=== PATIENT | male | born 1945 | race Caucasian/White ===

== ENCOUNTER 2019-06-02 11:53 | Observation (INO) ==
--- NOTE | 2019-06-02 12:00 | Emergency Department Note ---
Disposition Clinical Impression: Generalized weakness, Left leg swelling, Elevated d-dimer Disposition: Admitted As Inpatient Condition: Fair Referrals: Robyn Navarrete, LOSS PREVENTION INVESTIGATOR [Primary Care Provider] - Forms: ED Satisfaction Letter, Work/School Release Time of Disposition: 13:05 General Adult HPI - General Chief complaint: ED General Medical Stated complaint: left ankle swelling, weakness Time Seen by Provider: 06/02/19 11:57 Source: patient, EMS Mode of arrival: EMS Limitations: no limitations Nursing Notes Reviewed: Yes Vital Signs Reviewed: Yes - History of Present Illness HPI Narrative: Patient arrives by EMS having been dispatched for "general illness". He arrived and he states that he has left ankle swelling for which she is been evaluated by his primary care provider, Robyn Navarrete. He had edema was placed on Lasix for 5 days that his blood pressure pills were adjusted. He stated that he had improvement of swelling but it "swelled back up after stopping the Lasix". He does not have another appointment with his primary care provider nor is he called for an appointment. Today he states he difficulty standing because his "legs give out". He describes this as being "just weak". He denies dizziness or vertiginous symptoms. He denies any localized numbness, tingling or weakness. He denies chest pain or palpitations. He denies any shortness of breath, nausea or diaphoresis. Denies abdominal pain and volunteers that he had a bowel movement 3-4 days ago. He has not had bloody or black stools. He denies headache or visual changes. He denies any history of DVT or PE. He does live with his brother. - Related Data Home Medications Medication Instructions Recorded Confirmed Amlodipine Besylate 10 mg PO QAM 01/20/19 01/20/19 OxyCODONE/APAP 5/325 [Percocet 1 tab PO Q6H PRN 01/20/19 01/20/19 5/325 MG] Allergies Allergy/AdvReac Type Severity Reaction Status Date / Time No Known Allergies Allergy Verified 01/20/19 13:59 All systems ED: reviewed and negative except as stated. Past Medical History - Past Medical History Attestation: Yes The following information was validated with the patient. Source: patient, old records reviewed, nursing notes reviewed Medical history: Reports: hypertension, kidney stones, renal disease, other Surgical history: Reports: other Psychiatric history: Reports: no psych history - Social History Smoking Status: Former smoker Smokeless Tobacco Status: No Alcohol use: Reports: none Drug use: Reports: none Physical Exam - General Limitations: no limitations General appearance: alert, in no apparent distress - Head Head exam: atraumatic, normocephalic, normal inspection - Eye Eye exam: Present: normal appearance, PERRL, EOMI - ENT ENT exam: normal exam - Neck Neck exam: Present: normal inspection, full ROM, trachea midline - Chest Chest inspection: Present: normal inspection, symmetric chest wall rise - Respiratory Respiratory exam: Present: normal lung sounds bilaterally. Absent: respiratory distress, wheezes, prolonged expiratory phase - Cardiovascular Cardiovascular exam: Present: regular rate, normal rhythm, normal heart sounds. Absent: tachycardia - Abdominal Exam Abdominal exam: Present: soft, Non-Tender, normal bowel sounds. Absent: tenderness, distention, guarding, rebound, rigidity - Extremities Exam Extremities exam: Present: normal inspection, full ROM, normal capillary refill, pedal edema (Left greater than right., 2+, pitting). Absent: calf tenderness - Expanded Lower Extremity Exam Neurovascular/Tendon exam: Present: normal capillary refill. Absent: motor deficit, sensory deficit, tendon deficit Gait: not tested/not observed - Neurological Exam Neurological exam: Present: alert, oriented X3 - Psychiatric Psychiatric exam: Present: normal affect, normal mood - Skin Skin exam: Present: warm, dry, intact, normal color. Absent: diaphoresis, pallor Course Course Narrative: 1302: Care has been discussed with the patient and family. He is feeling too weak to stand and ambulate. He will not be a good candidate for discharge. He does have an elevated d-dimer for which she is administered a dose of Lovenox. I discussed care with Dr. Courtney for inpatient observation, physical therapy's assessment with regard to standing and ambulation and to obtain an inpatient venous Doppler study. Verbal orders have been obtained. Patient remains in stable condition. Vital Signs Temperature 98.7 F 06/02/19 11:56 Pulse Rate 96 06/02/19 11:56 Respiratory Rate 18 06/02/19 11:56 Blood Pressure 166/70 06/02/19 11:56 O2 Sat by Pulse Oximetry 95 06/02/19 11:56 Temperature 98.7 F 06/02/19 11:56 Pulse Rate 96 06/02/19 11:56 Respiratory Rate 18 06/02/19 11:56 Blood Pressure 166/70 06/02/19 11:56 O2 Sat by Pulse Oximetry 95 06/02/19 11:56 Oxygen Delivery Oxygen Delivery Room Air Medical Decision Making - Medical Records Medical records reviewed: Yes I reviewed the patient's medical records. - Lab Data Lab results reviewed: Yes I reviewed the patient's lab results. Lab results narrative: The patient's creatinine is in his usual range. Result diagrams: 06/02/19 12:20 06/02/19 12:20 Lab Results 06/02/19 06/02/19 06/02/19 Range/Units 12:20 12:20 12:20 WBC 16.5 H (4.3-11.1) K/mcL RBC 4.32 (4.19-5.50) M/mcL Hgb 13.7 (12.9-16.9) g/dL Hct 39.3 (37.5-50.1) % MCV 91.0 (83.0-100.0) fL MCH 31.7 (28.0-33.3) pg MCHC 34.9 (31.6-35.5) g/dL RDW 13.5 (11.5-14.5) % Plt Count 112 L (140-400) K/mcL MPV 11.0 (9.4-12.4) fL Immature Gran % 1.0 (0-4) % Seg Neutrophils % 86.7 % Lymphocytes % 4.6 % Monocytes % 7.3 % Eosinophils % 0.1 % Basophils % 0.3 % Neutrophils # 14.3 H (1.6-8.9) K/mcL Lymphocytes # 0.8 (0.6-4.6) K/mcL Monocytes # 1.2 (0.0-1.3) K/mcL Eosinophils # 0.0 (0.0-0.6) K/mcL Basophils # 0.1 (0.0-0.2) K/mcL D-Dimer 594 H (0-500) ng/mLFEU Sodium 137 (136-145) mEq/L Potassium 3.8 (3.5-5.1) mEq/L Chloride 104 (98-107) mEq/L Carbon Dioxide 23 (23-29) mEq/L BUN 18 (8-23) mg/dL Creatinine 1.60 H (0.70-1.30) mg/dL Est GFR ( Amer) 51 L (> 60) Est GFR (Non-Af Amer) 42 L (> 60) BUN/Creatinine Ratio 11 (6-26) Glucose 184 H (70-105) mg/dL Calculated Osmolality 291 (280-300) Calcium 9.1 (8.6-10.3) mg/dL Total Bilirubin 1.3 H (0.3-1.0) mg/dL Direct Bilirubin 0.2 (0.0-0.2) mg/dL Indirect Bilirubin 1.1 (0.0-1.2) mg/dL AST 17 (13-39) Units/L ALT 28 (7-52) Units/L Alkaline Phosphatase 66 (34-104) Units/L B-Natriuretic Peptide (Less than 100) pg/mL Serum Total Protein 7.1 (6.4-8.9) g/dL Albumin 3.9 (3.5-5.7) g/dL Globulin 3.2 (2.4-3.5) g/dL Albumin/Globulin Ratio 1.2 (1.1-2.2) 06/02/19 Range/Units 12:20 WBC (4.3-11.1) K/mcL RBC (4.19-5.50) M/mcL Hgb (12.9-16.9) g/dL Hct (37.5-50.1) % MCV (83.0-100.0) fL MCH (28.0-33.3) pg MCHC (31.6-35.5) g/dL RDW (11.5-14.5) % Plt Count (140-400) K/mcL MPV (9.4-12.4) fL Immature Gran % (0-4) % Seg Neutrophils % % Lymphocytes % % Monocytes % % Eosinophils % % Basophils % % Neutrophils # (1.6-8.9) K/mcL Lymphocytes # (0.6-4.6) K/mcL Monocytes # (0.0-1.3) K/mcL Eosinophils # (0.0-0.6) K/mcL Basophils # (0.0-0.2) K/mcL D-Dimer (0-500) ng/mLFEU Sodium (136-145) mEq/L Potassium (3.5-5.1) mEq/L Chloride (98-107) mEq/L Carbon Dioxide (23-29) mEq/L BUN (8-23) mg/dL Creatinine (0.70-1.30) mg/dL Est GFR ( Amer) (> 60) Est GFR (Non-Af Amer) (> 60) BUN/Creatinine Ratio (6-26) Glucose (70-105) mg/dL Calculated Osmolality (280-300) Calcium (8.6-10.3) mg/dL Total Bilirubin (0.3-1.0) mg/dL Direct Bilirubin (0.0-0.2) mg/dL Indirect Bilirubin (0.0-1.2) mg/dL AST (13-39) Units/L ALT (7-52) Units/L Alkaline Phosphatase (34-104) Units/L B-Natriuretic Peptide 81 (Less than 100) pg/mL Serum Total Protein (6.4-8.9) g/dL Albumin (3.5-5.7) g/dL Globulin (2.4-3.5) g/dL Albumin/Globulin Ratio (1.1-2.2) - Radiology Data Radiology results reviewed: Yes I reviewed the patient's radiology results. Single view chest x-ray is performed. This does not demonstrate evidence for i nfiltrate, pneumothorax, foreign body or heart failure. Patient has a small left-sided effusion. The cardiac silhouette is normal. I do not see abnormality to the osseous structures of the chest. This is on my interpretation. Impressions Chest X-Ray 06/02/19 12:30 IMPRESSION: Bibasilar atelectasis. Possible trace left pleural effusion D/ / Win Villa MD / Win Villa MD Interpreting Provider: Win Villa MD - EKG Data EKG #1 EKG attestation: Yes I reviewed and interpreted this EKG. EKG shows normal: sinus rhythm, axis, intervals, QRS complexes, ST-T waves Rate: normal (102) Interpretation: no acute changes, normal EKG
[2019-06-02 12:32] LABS: Basophils # 0.1 K/mcL (0.0-0.2); Basophils % 0.3 %; Eosinophils % 0.1 %; Hematocrit 39.3 % (37.5-50.1); Hemoglobin 13.7 g/dL (12.9-16.9); Lymphocytes # 0.8 K/mcL (0.6-4.6); Lymphocytes % 4.6 %; Mean Corpuscular HGB Conc 34.9 g/dL (31.6-35.5); Mean Corpuscular Hemoglobin 31.7 pg (28.0-33.3); Monocytes # 1.2 K/mcL (0.0-1.3); Monocytes % 7.3 %; Neutrophils # 14.3 K/mcL (1.6-8.9); Platelet Count 112 K/mcL (140-400); Red Blood Count 4.32 M/mcL (4.19-5.50); Red Cell Distribution Width 13.5 % (11.5-14.5); Segmented Neutrophils % 86.7 %; White Blood Count 16.5 K/mcL (4.3-11.1)
[2019-06-02 12:42] LABS: Albumin 3.9 g/dL (3.5-5.7); Albumin/Globulin Ratio 1.2 (1.1-2.2); Bilirubin,Direct 0.2 mg/dL (0.0-0.2); Bilirubin,Indirect 1.1 mg/dL (0.0-1.2); Bilirubin,Total 1.3 mg/dL (0.3-1.0); Calcium 9.1 mg/dL (8.6-10.3); Globulin 3.2 g/dL (2.4-3.5); Potassium 3.8 mEq/L (3.5-5.1); Total Protein 7.1 g/dL (6.4-8.9)
[2019-06-02] MEDS ORDERED: *HR* Enoxaparin 150 MG/ML SYRINGE SQ ONE (13:00)
[2019-06-02] MEDS ORDERED: Naloxone 0.4 MG/ML INJ IVP PRN (13:07)
[2019-06-02] MEDS ORDERED: MOM Conc 10 ML UD.LIQ PO PRN (13:07)
[2019-06-02] MEDS ORDERED: Mag Hydrox/Al Hydrox/Simeth 30 ML UDC PO PRN (13:07)
[2019-06-02] MEDS ORDERED: Ondansetron ODT 4 MG TAB.RAPDIS SL PRN (13:07)
[2019-06-02] MEDS ORDERED: Acetaminophen 325 MG TABLET PO PRN (15:45)
--- NOTE | 2019-06-02 15:51 | Internal Med History&Physical ---
Date of Encounter: 06/02/19 Time of Encounter: 15:20 Assessment and Plan (1) Left leg cellulitis Current visit: Yes Status: Acute Blood cultures will be drawn and he will be started on empiric vancomycin with lactobacillus. (2) Hypertension Current visit: Yes Status: Chronic Amlodipine will be held to lessen edema. Blood pressure will be monitored. Qualifiers: Hypertension type: essential hypertension Qualified Code(s): I10 - Essential (primary) hypertension (3) CKD (chronic kidney disease) stage 3, GFR 30-59 ml/min Current visit: Yes Status: Chronic Monitor renal indices. (4) Hyperglycemia Current visit: Yes Status: Acute Check hemoglobin A1c in a.m. (5) Elevated d-dimer Current visit: Yes Status: Acute Age-adjusted WNL. Venous ultrasound has been ordered through ER. Lovenox has been given. (6) History of kidney stones Current visit: Yes Status: Acute Uric acid composition on stone analysis. Check serum uric acid level in a.m. Internal Medicine - H&P: HPI Chief complaint: Left foot pain and redness, weakness Admitted From: Emergency Dept Plans for Post Hospital Care: Home History of present illness: Mr. Garcia is a 73 year old male who came to emergency room stating he had increased pain in his left foot with chills onset 1-2 days earlier. He reports overall sensation of weakness in his left leg for approximately one week. He was evaluated in emergency room and was found to have leukocytosis with left shift. D-dimer was slightly elevated at 594. He was admitted to [facility] floor for ongoing care needs. He reports he has had edema in his feet for 2-3 weeks, left more than right. His PCP gave him 5 day course of Lasix at the last office visit 2-3 weeks ago. He reports brief improvement in the edema but it returned after Lasix was discontinued. Past Med Surg Social Fam HX - Past Medical History Medical history: hypertension, kidney stones, renal disease, other Additional medical history: HIATAL HERNIA Psychiatric history: no psych history - Past Surgical History Surgical History: other Additional surgical history: removal of kidney stones x 7 - Social History Smoking Status: Former smoker Smokeless Tobacco Status: No Alcohol use: none Drug use: none Internal Medicine - H&P: Meds Amlodipine Besylate 10 mg PO QA 01/20/19 [History] Allergy/AdvReac Type Severity Reaction Status Date / Time No Known Allergies Allergy Verified 01/20/19 13:59 All Systems PM: A 10-system review of systems was performed and is negative for pertinent findings except as documented above in the HPI. Review of systems: Gen.: He states his weight has been stable for several months Cardiovascular: He has history of hypertension but denies MS heart failure angina DVT or pulmonary embolus Respiratory: He smoked from approximately age [age]. He denies chronic lung disease and does not use home oxygen. GI: He denies disorders of his liver gallbladder or exocrine pancreas : He has had multiple kidney stones. He denies other kidney bladder prostate disorders. He was unaware he had chronic kidney disease on all labs dating back to January 2016. Neurologic: He denies large distribution strokes or seizures. Endocrine: He denies diabetes thyroid disease or hyperlipidemia Hematology/oncology: He denies blood disorders cancers or anemia Psychiatric: He denies anxiety depression or other mental health issues. [place] skeletal: He reports right elbow injury several years ago. He had left index finger injury from a snakebite resulting in skin graft. He reports remote right leg injury from a saw accident. He denies other bone joint or muscle disorders. - Constitutional Vitals: Temp Pulse Resp BP Pulse Ox 98.3 F 91 20 133/67 96 06/02/19 13:36 06/02/19 13:36 06/02/19 13:36 06/02/19 13:36 06/02/19 13:36 Exam: Gen.: He is a well-developed well-nourished male resting comfortably in bed who appears in no acute distress HEENT: Head is atraumatic and normocephalic. Eyes: EOMI. There is no scleral icterus. Mouth: Mucosa is moist. Neck: Supple and nontender. There is no thyromegaly or adenopathy noted. Heart: Regular without murmurs gallops or ectopics Lungs: No wheezes or crackles are heard. Abdomen: Soft and nontender. No masses or guarding are noted. Extremities: There is trace edema of the right lower leg and dorsum of foot. There is 1+ edema and increased erythema and warmth of the left lower leg and foot. Neurologic: Mental status: He is talkative and a good historian. Cranial nerves: Smile is symmetric. Forehead wrinkles bilaterally. Tongue protrudes midline. EOMI. Motor: There is no pronator drift. Cerebellar: Finger to nose is intact bilaterally. Skin: Warm and dry Internal Med - H&P Results - Labs CBC & Chem 7: 06/02/19 12:20 06/02/19 12:20 Labs: Short CBC 06/02/19 Range/Units 12:20 WBC 16.5 H (4.3-11.1) K/mcL Hgb 13.7 (12.9-16.9) g/dL Hct 39.3 (37.5-50.1) % Plt Count 112 L (140-400) K/mcL Neutrophils # 14.3 H (1.6-8.9) K/mcL BMP 06/02/19 12:20 Sodium 137 Potassium 3.8 Chloride 104 Carbon Dioxide 23 BUN 18 Creatinine 1.60 H Glucose 184 H Calcium 9.1 Liver Function 06/02/19 Range/Units 12:20 Total Bilirubin 1.3 H (0.3-1.0) mg/dL Direct Bilirubin 0.2 (0.0-0.2) mg/dL AST 17 (13-39) Units/L ALT 28 (7-52) Units/L Alkaline Phosphatase 66 (34-104) Units/L Albumin 3.9 (3.5-5.7) g/dL - Impressions ITS Impressions Chest X-Ray 06/02/19 12:30 IMPRESSION: Bibasilar atelectasis. Possible trace left pleural effusion D/ / Win Villa MD / Win Villa MD Interpreting Provider: Win Villa MD
--- NOTE | 2019-06-02 17:52 | Electrocardiograph Report ---
[place] [id number] Test Date: 2019-06-02 Pat Name: Home Garcia Department: EDP-14 Room: [facility] Gender: M [employer]ant [employer] (Ex ): : 1945 Requested By: Gavino Clayton Order Number: [id number] Reading MD: Milana Patino Measurements Intervals [place] Rate: 102 P: 44 [place]: 150 QRS: 51 QRSD: 102 T: 43 QT: 338 QTc: 441 Interpretive Statements Sinus tachycardia Low voltage, precordial leads Electronically Signed On 06-02-2019 17:50:43 EDT by Milana Patino
[2019-06-02] MEDS ORDERED: Lactobacillus 1 EACH CAP.SPRINK PO SCH (21:00)
[2019-06-03 06:16] LABS: Basophils % 0.3 %; Eosinophils # 0.1 K/mcL (0.0-0.6); Eosinophils % 0.8 %; Hematocrit 33.7 % (37.5-50.1); Hemoglobin 11.4 g/dL (12.9-16.9); Immature Granulocytes % 0.4 % (0-4); Lymphocytes # 1.9 K/mcL (0.6-4.6); Lymphocytes % 19.4 %; Mean Corpuscular HGB Conc 33.8 g/dL (31.6-35.5); Mean Corpuscular Hemoglobin 31.3 pg (28.0-33.3); Mean Corpuscular Volume 92.6 fL (83.0-100.0); Mean Platelet Volume 11.3 fL (9.4-12.4); Monocytes # 0.6 K/mcL (0.0-1.3); Monocytes % 5.7 %; Red Blood Count 3.64 M/mcL (4.19-5.50); Red Cell Distribution Width 13.5 % (11.5-14.5); Segmented Neutrophils % 73.4 %; White Blood Count 9.6 K/mcL (4.3-11.1)
[2019-06-03 06:21] LABS: Platelet Count 89 K/mcL (140-400)
[2019-06-03 06:23] VITALS: BP 129/68
[2019-06-03 06:54] LABS: Calcium 8.5 mg/dL (8.6-10.3); Potassium 3.7 mEq/L (3.5-5.1); Uric Acid 6.8 mg/dL (2.3-7.6)
[2019-06-03 08:41] LABS: Estimated Average Glucose 148 mg/dl
[2019-06-03] MEDS ORDERED: Cyanocobalamin (B-12) 1,000 MCG/ML VIAL IM ONE (09:52)
--- NOTE | 2019-06-03 09:53 | Discharge Summary ---
Orders not resulted at time of discharge: Pending orders 06/02/19 16:48 Blood Culture [Culture,Blood] [] Stat Date of Encounter: 06/03/19 Time of Encounter: 09:46 - Discharge Diagnosis (1) Left leg cellulitis Priority: Primary Status: Acute (2) Hypertension Priority: Secondary Status: Chronic Qualifiers: Hypertension type: essential hypertension Qualified Code(s): I10 - Essential (primary) hypertension (3) CKD (chronic kidney disease) stage 3, GFR 30-59 ml/min Priority: Secondary Status: Chronic (4) Elevated d-dimer Priority: Secondary Status: Acute (5) History of kidney stones Priority: Secondary Status: Acute (6) DM type 2 (diabetes mellitus, type 2) Priority: Secondary Status: Chronic Qualifiers: Diabetes mellitus fdc insulin use: without salvage determiner use Diabetes mellitus complication status: with kidney complications Diabetes mellitus complication detail: with chronic kidney disease Chronic kidney disease stage: stage 3 (moderate) Qualified Code(s): E11.22 - Type 2 diabetes mellitus with diabetic chronic kidney disease; N18.3 - Chronic kidney disease, stage 3 (moderate) (7) Anemia Priority: Secondary Status: Acute Qualifiers: Anemia type: unspecified type Qualified Code(s): D64.9 - Anemia, unspecified (8) B12 deficiency Priority: Secondary Status: Chronic Hospital course: Mr. Garcia is a 73 year old male who came to emergency room stating he had increased pain in his left foot with chills onset 1-2 days earlier. He reports overall sensation of weakness in his left leg for approximately one week. He was evaluated in emergency room and was found to have leukocytosis with left shift. D-dimer was slightly elevated at 594. He was admitted to [facility] floor for ongoing care needs. I saw him the afternoon of June 02 and performed a history and physical. Blood cultures were drawn and he was started empirically on IV vancomycin and Lactobacillus for left leg cellulitis. He had significant clinical improvement overnight with decreased redness and warmth in the leg. WBC normalized to 9.6 with resolution of left shift on blood work June 03. He stated he felt improved and wished to be discharged home. I offered him staying another day in the hospital but he stated he needed to leave and do duties around home. He will continue with oral antibiotic and probiotic for 5 additional days. Left leg venous ultrasound was ordered by ER physician. Preliminary report was no evidence of DVT. His PCP can follow up to review final report when available. Hemoglobin decreased to 11.4 on June 03. B12 level returned low at 178. He will be given a B12 injection prior to discharge and was given a prescription for oral B12 supplement to continue at home. Iron profile, ferritin, and folate levels were ordered with results pending at time of discharge. Creatinine decreased slightly to 1.50. Review of archive lab shows chronic kidney disease stage III. Hemoglobin A1c returned at 6.8% consistent with DM 2, diet-controlled. His PCP can order diabetic teaching. Amlodipine was discontinued to lessen edema. He will be given lisinopril/HCTZ for hypertension and diabetic renal prophylaxis. Uric acid level returned WNL at 6.8. On June 03 he wished to be discharged home. He will follow with his PCP Robyn Navarrete CNP within 1 week. - Time Spent with Patient Total time spent providing and/or coordinating discharge services: - Discharge Medications Prescriptions: New Lactobacillus [Culturelle] 1 each PO BID #10 cap.sprink Doxycycline 100 mg PO BID #10 capsule Lisinopril-HCTZ 10-12.5 [Prinzide 10-12.5] 1 each PO DAILY #30 tablet Cyanocobalamin (B-12) [Vitamin B12] 1,000 mcg PO DAILY #30 tablet Discontinued Amlodipine Besylate 10 mg PO QAM Home Medications: Cyanocobalamin (B-12) [Vitamin B12] 1,000 mcg PO DAILY #30 tablet 06/03/19 [Rx] Doxycycline 100 mg PO BID #10 capsule 06/03/19 [Rx] Lactobacillus [Culturelle] 1 each PO BID #10 cap.sprink 06/03/19 [Rx] Lisinopril-HCTZ 10-12.5 [Prinzide 10-12.5] 1 each PO DAILY #30 tablet 06/03/19 [Rx] Allergies/Adverse Reactions: Allergy/AdvReac Type Severity Reaction Status Date / Time No Known Allergies Allergy Verified 01/20/19 13:59 Date of admission: 06/02/19 13:28 Primary care physician: Robyn Navarrete CNP Consults: 06/02/19 13:15 Consult to Physical Therapy [CONS] Routine Comment: Evaluate, develop and implement POC Reason for Consult: Assessed ability for ambulation and need for potential ambulatory aides. Does patient have active BEDREST order?: No Is patient medically & hemodynamically stable?: Yes Patient assessed for mobility or mobilized this visit?: No - Constitutional Vitals: Temp Pulse Resp BP Pulse Ox 98.6 F 85 20 129/68 96 06/03/19 06:22 06/03/19 06:22 06/03/19 06:22 06/03/19 06:22 06/03/19 06:22 - Patient Status Disposition: Home, Self-Care Condition: Fair - Discharge Instructions Follow Up With: Robyn Navarrete, [place] [Primary Care Provider] - 1 week - Diet and Activity Activity: resume usual activities as tolerated Diet: advance to your usual diet
[2019-06-03 13:10] LABS: % Iron Saturation 13 % (20-55); Iron 30 mcg/dL (65-175); Transferrin 171 mg/dL (203-362)
[2019-06-03 13:22] LABS: Ferritin 217 ng/mL (20-250)
[2019-06-04 06:12] LABS: Acinetobacter baumannii by PCR Not Detected (Not Detect); Candida albicans by PCR Not Detected (Not Detect); Candida glabrata by PCR Not Detected (Not Detect); Candida krusei by PCR Not Detected (Not Detect); Candida parapsilosis by PCR Not Detected (Not Detect); Candida tropicalis by PCR Not Detected (Not Detect); Enterobacter cloacae Cmplx PCR Not Detected (Not Detect); Enterobacteriaceae by PCR Not Detected (Not Detect); Enterococcus by PCR Not Detected (Not Detect); Escherichia coli by PCR Not Detected (Not Detect); Klebsiella oxytoca by PCR Not Detected (Not Detect); Klebsiella pneumoniae by PCR Not Detected (Not Detect); Proteus by PCR Not Detected (Not Detect); Pseudomonas aeruginosa by PCR Not Detected (Not Detect); Serratia marcescens by PCR Not Detected (Not Detect); Staphylococcus aureus by PCR Not Detected (Not Detect); Staphylococcus by PCR Not Detected (Not Detect); Streptococcus agalactiae(B)PCR Not Detected (Not Detect); Streptococcus by PCR Not Detected (Not Detect); Streptococcus pneumoniae PCR Not Detected (Not Detect); Streptococcus pyogenes (A) PCR Not Detected (Not Detect)
== END 2019-06-03 11:33 | disposition home or self-care (01) ==
LOC: EMEROOPIK 11:53 → INPPIK 11:53
PROVIDERS: ADMIT Internal Medicine; ATTEND Internal Medicine